=== PATIENT | female | born 2000 | race Caucasian/White ===

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

== ENCOUNTER → 2021-01-02 | Outpatient (CLI) | payer BC ==
--- NOTE | 2021-01-02 16:43 | REP ---
INDICATION: LT AXILLA SWELLING. COMPARISON: None. TECHNIQUE: Real-time sonographic evaluation of left axilla performed. FINDINGS: Two lymph nodes are seen which contain echogenic fatty baldomero. I do not see evidence of significant cortical thickening of the lymph nodes. These measure 13 x 9 x 7 mm and 13 x 14 x 10 mm. IMPRESSION: Two morphologically normal appearing lymph nodes are seen in the left axilla. Clinical correlation and follow-up recommended. <Electronically signed by Philipp Fisher > 01/02/21 [id number]
== END ==
LOC: M RAD 14:58
PROVIDERS: ATTEND Physician Assistant
DX: R59.0 Localized enlarged lymph nodes (principal)

== ENCOUNTER → 2021-04-22 | Outpatient (CLI) | payer BC ==
--- NOTE | 2021-04-23 15:02 | SLEEPHOME ---
DATE: 04/22/2021 ORDERED BY: Celso Reynolds Diagnostic home sleep testing was performed due to concern for the obstructive sleep apnea syndrome in this patient with a history of hypersomnia. For testing, a nocturnal T3 respiratory monitoring device was used. Continuous record was made of pulse, oxygen saturation, air flow, chest and abdominal strain, and body position. There was 9 hours and 51 minutes of data reviewed. There was 5 hours and 9 minutes marked as time in bed. During the interval marked time in bed, there were only 4 respiratory events identified of 10 seconds in duration or greater for a respiratory event index well within normal limits. of 0.8. Baseline pulse rate 63. Pulse rate ranged 47-106. Baseline saturation 95%. Lowest oxygen saturation noted was 92%. Testing was performed in both the supine and nonsupine positions. IMPRESSION: Normal diagnostic home sleep test.
== END ==
LOC: M SLEEP HO 10:51
PROVIDERS: ATTEND Physician Assistant
DX: G47.10 Hypersomnia, unspecified (principal)